=== PATIENT | male | born 1995 | race Caucasian/White ===

== ENCOUNTER 2018-05-08 18:42 | Inpatient (IN) | payer BC, OTHER, SELFPAY ==
[~2018-05-08 18:42] MED LIST: ISOVUE-370 76%-LOCM 1 ML ONE
[2018-05-08 19:50] LABS: #Eosinphils 0.1 thou/uL (0.0-0.7); #Lymphocytes 0.4 thou/uL (1.20-3.40); #Monocytes 0.5 thou/uL (0.11-0.59); #Neutrophils 10.8 thou/uL (1.40-6.50); %Eosinophils 0.9 % (0.0-10.0); %Lymphocytes 3.3 % (21.0-51.0); %Monocytes 4.6 % (0.0-10.0); %Neutrophils 91.2 % (42.0-75.0); Hemoglobin 16.1 g/dL (14.0-18.0); Mean Corpuscular HGB CONC 27.9 g/dL (32.0-36.0); Mean Corpuscular Hemoglobin 24.5 pg (27.0-31.0); Mean Corpuscular Volume 87.9 fL (78.0-98.0); Platelet Count 231 thou/uL (130-400); RBC Distribution Width 11.6 % (11.5-14.5); Red Blood Cell (RBC) Count 6.57 mill/uL (4.70-6.10); White Blood Cell (WBC) Count 11.9 thou/uL (4.8-10.8)
[2018-05-08 19:55] LABS: ALT (SGPT) 17 U/L (8-55); AST (SGOT) 18 U/L (5-34); Albumin 5.5 g/dL (3.5-5.0); Alkaline Phosphatase 68 U/L (40-150); Anion Gap 15 mmol/L (10-20); BUN (Urea Nitrogen) 16 mg/dL (8.9-20.6); Bilirubin, Total 1.8 mg/dL (0.2-1.2); Calc. Creatinine Clearance 0 mL/min (70-130); Calcium 10.8 mg/dL (7.8-10.44); Carbon Dioxide 26 mmol/L (22-29); Chloride 106 mmol/L (98-107); Estimated GFR-MDRD 70; Globulin 3.4 g/dL (2.4-3.5); Glucose 110 mg/dL (70-105); Lipase 8 U/L (8-78); Potassium 4.3 mmol/L (3.5-5.1); Protein, Total 8.9 g/dL (6.0-8.3); Sodium 143 mmol/L (136-145)
[2018-05-08] MEDS ORDERED: Morphine 4 MG/ML VIAL ONE (20:09)
[2018-05-08] MEDS ORDERED: Ondansetron PF 4 MG/2 ML Vial ONE (20:10)
--- NOTE | 2018-05-08 20:34 | CT ---
CT ABDOMEN AND PELVIS WITH IV CONTRAST: 05/08/18 HISTORY: Abdominal pain. Diarrhea and vomiting. FINDINGS: The lung bases are clear. The liver, spleen, kidneys, adrenal glands, and pancreas have a normal CT a ppearance. There is fluid throughout the small and large bowel without abnormal dilatation. No inflam mation is apparent. No enlarged lymph nodes or free fluid. IMPRESSION: No significant abnormalities are demonstrated. POS: [facility]
--- NOTE | 2018-05-08 21:59 | ULT ---
SONOGRAM RIGHT UPPER QUADRANT: 05/08/18 HISTORY: Right upper quadrant pain. FINDINGS: The gallbladder has a normal appearance. Common duct is 0.4 cm. Liver unremarkable without focal mass or intrahepatic biliary dilatation. No free fluid. IMPRESSION: Normal right upper quadrant sonogram. POS: [facility]
[2018-05-08 22:41] LABS: Acetaminophen Less than 6.0 mcg/mL (10.0-30.0); Alcohol Less than 10 mg/dL (Less than 10); Salicylate Less than 8.0 mg/dL (15.0-30.0)
[2018-05-08] MEDS ORDERED: Promethazine HCl 25 MG/ML VIAL ONE (22:45)
[2018-05-08 22:55] LABS: Bilirubin Negative (Negative); Blood, Urine Negative (Negative); Clarity CLEAR (Clear); Glucose, Urine (Dipstick) Negative (Negative); Leukocyte Negative (Negative); Nitrite Negative (Negative); Protein, Urine (Dipstick) Negative (Neg-Trace); Urobilinogen 0.2 mg/dL (0.2-1.0)
[2018-05-08 22:56] LABS: Specific Gravity, Urine 1.059 (1.002-1.036)
[2018-05-08] MEDS ORDERED: metroNIDAZOLE 500 MG/100 ML BAG ONE (22:59)
[2018-05-08] MEDS ORDERED: metroNIDAZOLE 500 MG in Premix Bag 1 BAG IVPB ONE (23:00)
[2018-05-08 23:03] LABS: Amphetamine Not Detected (NotDetected); Barbiturates Screen Not Detected (NotDetected); Benzodiazepine Screen Not Detected (NotDetected); Cocaine Metabolite Screen Not Detected (NotDetected); Medtox Control Line Valid? VALID (VALID); Medtox Reader # READER 4; Methadone Not Detected (NotDetected); Methamphetamine Not Detected (NotDetected); Opiate Screen Detected (NotDetected); Oxycodone Screen Not Detected (NotDetected); Phencyclidine (PCP) Not Detected (NotDetected); THC/Cannabinoid Screen Not Detected (NotDetected); Tricyclic Screen Not Detected (NotDetected)
[2018-05-09] VITALS: BMI 27.1
[2018-05-09] MEDS ORDERED: Ondansetron PF 4 MG/2 ML Vial IVP PRN (00:04)
[2018-05-09] MEDS ORDERED: Ondansetron ODT 4 MG TAB SL PRN (00:04)
[2018-05-09] MEDS ORDERED: hydrALAZINE 20 MG/ML VIAL SLOW IVP PRN (00:11)
[2018-05-09] MEDS: Sodium Chloride 0.9% 1,000 ML IV SCH ×5 (00:23→19:50)
[2018-05-09 00:44] LABS: HIV (1/2) Antibody/Antigen Non-Reactive (NonReactive); HIV 1/2 INDEX 0.11 S/CO (<1.00)
[2018-05-09] MEDS ORDERED: Acetaminophen 325 MG TAB PO PRN (04:37)
[2018-05-09] MEDS: metroNIDAZOLE 500 MG in Premix Bag 1 BAG IVPB SCH ×2 (04:55→14:10)
[2018-05-09 06:51] LABS: #Lymphocytes 0.8 thou/uL (1.20-3.40); #Monocytes 0.4 thou/uL (0.11-0.59); %Basophils 0.4 % (0.0-1.0); %Eosinophils 0.4 % (0.0-10.0); %Lymphocytes 11.1 % (21.0-51.0); %Monocytes 5.3 % (0.0-10.0); %Neutrophils 82.8 % (42.0-75.0); Hemoglobin 13.9 g/dL (14.0-18.0); Mean Corpuscular HGB CONC 33.6 g/dL (32.0-36.0); Mean Corpuscular Hemoglobin 29.7 pg (27.0-31.0); Mean Corpuscular Volume 88.3 fL (78.0-98.0); Mean Platelet Volume 7.2 fL (7.4-10.4); Platelet Count 163 thou/uL (130-400); RBC Distribution Width 11.5 % (11.5-14.5); Red Blood Cell (RBC) Count 4.68 mill/uL (4.70-6.10); White Blood Cell (WBC) Count 7.2 thou/uL (4.8-10.8)
[2018-05-09 07:24] LABS: Anion Gap 11 mmol/L (10-20); BUN (Urea Nitrogen) 16 mg/dL (8.9-20.6); Calc. Creatinine Clearance 135 mL/min (70-130); Calcium 8.5 mg/dL (7.8-10.44); Carbon Dioxide 23 mmol/L (22-29); Chloride 109 mmol/L (98-107); Estimated GFR-MDRD Greater than 90; Glucose 103 mg/dL (70-105); Potassium 3.9 mmol/L (3.5-5.1); Sodium 139 mmol/L (136-145)
[2018-05-09] MEDS ORDERED: Ciprofloxacin Lactate/D5W 200 MG in Premix Bag 1 BAG IVPB SCH (09:00)
--- NOTE | 2018-05-09 10:09 | HP ---
PRIMARY CARE PHYSICIAN: Out of town. CHIEF COMPLAINT: Nausea, vomiting, diarrhea onset yesterday. The patient also reports some fever prehospital. HISTORY OF PRESENT ILLNESS: Mr. Eduardo is a 22-year-old male, who returns to this facility in the PACU, reports nausea, vomiting, diarrhea, blood streaking, but reports some fever, on day of admission reports 9 episodes of diarrhea prior to presentation to the ER. He also reports abdominal pain. Denies history of Crohn's or ulcerative colitis. Reports ingestion of possible raw meat. Stool samples positive for Cryptosporidium and Campylobacter. The patient was started on fluoroquinolones and Alinia for the Cryptosporidium. Today on admission, the patient reports that he feels better while he has been admitted to the hospital. He denies any nausea, vomiting, or diarrhea. He reports that he is thirsty, but does not have an appetite. In the ER, he was given 2 L of fluid, Phenergan, Zofran, Cipro, and Flagyl and was admitted to the hospital for further management. Denies any sick contacts. Denies any recent travel. PAST MEDICAL HISTORY: None. PAST SURGICAL HISTORY: Has dental implants. FAMILY HISTORY: Grandparents, positive for lymphoma. No other history is given. PSYCHIATRIC HISTORY: None. SOCIAL HISTORY: The patient drinks socially once a month. The patient denies drug use. No smoking. Lives at home. ALLERGIES: PENICILLIN. MEDICATIONS: None. REVIEW OF SYSTEMS: The patient reports of some fever, some chills. Does report abdominal pain, nausea, vomiting, diarrhea with some blood streaks in the diarrhea, reports onset yesterday. He is not quite sure what he may have eaten that would have been different. Denies any sick contacts. Denies any dysuria. All other systems were reviewed and are negative unless mentioned in the HPI. PHYSICAL EXAMINATION: VITAL SIGNS: Temperature 99.6, pulse is 82, respirations 16, pulse ox is 95% on room air, and blood pressure is 105/78. CONSTITUTIONAL: The patient appears pain free, appears nontoxic, is alert and oriented to person, place, and time. HEENT: Head is atraumatic, normocephalic. Eyes; eyelids are normal to inspection. Pupils are equal, round, and reactive to light. Extraocular muscles are intact. ENT; pharynx exam is normal. Mouth exam is normal. Mucous membranes are moist. NECK: Normal range of motion. Trachea is midline. RESPIRATORY/CHEST: No findings of respiratory distress. Breath sounds are clear. CARDIOVASCULAR: Heart rate is regular rate and rhythm. Heart sounds are normal. ABDOMEN: Nontender. Bowel sounds are hyperactive. No distention. No peritoneal signs. No rigidity. No guarding. BACK: Normal inspection. Normal range of motion. No tenderness. EXTREMITIES: Upper extremity; normal range of motion. Motor strength is normal. Sensation intact. Radial pulses are normal. Lower extremity; normal range of motion. Motor strength is normal. Sensation is intact. Pedal pulse are equal bilaterally. No edema noted to lower extremities. NEURO: The patient is alert and oriented to person, place, and time. Speech is normal. No focal motor or sensory deficits are noted. SKIN: Normal, dry, color. PSYCH: Normal affect. LABORATORY DATA: Pertinent labs; white blood cell count initially 11.9, this morning 7.2; hemoglobin 16.1, now 13.9; hematocrit 53.2, now 41.3; and platelet count 163. Sodium 139, potassium 3.9, chloride 109, carbon dioxide 23, gap is 11, BUN is 16, creatinine is 1.01, GFR is estimated at greater than 90, glucose is 103, and calcium 8.5. Urine negative except for specific gravity 1.059 and ketones are present. Toxicology appears otherwise negative. Serology, HIV 1 and 2 antigen and AB are nonreactive. Stool micro, positive for Cryptosporidium antigen. Negative for C difficile. Positive for Campylobacter. Positive for occult blood. Blood cultures, no growth to date after 24 hours. ASSESSMENT AND PLAN: 1. Acute enteritis with stool, which was positive for Cryptosporidium and Campylobacter. The patient is currently on Flagyl and Cipro and also Alinia has been started. Health Department will be contacted. The patient is on contact isolation. We will continue IV fluids. We will ask Dr. Wallace to consult. The patient is not immunocompromised at this point. 2. Dehydration, improving. We will continue IV fluids. The patient can start with p.o. fluids today and to ensure it is tolerated. We will trend labs, vital signs. Deep vein thrombosis prophylaxis will be started. Job ID: [id number]
--- NOTE | 2018-05-09 13:48 | PDOC.EVN ---
Event Note - Event Note Event Note: Chart reviewed. Pt seen with Cheryl O'ace. Pt says he feels well, still has diarrhea. VSS S1, S2, reg Lungs CTA A/P Cryptosporidium diarrhea, improving. Await ID consult. Discussed plan of care with Cheryl.
--- NOTE | 2018-05-09 19:29 | CON ---
DATE OF CONSULTATION: 05/09/2018 REASON FOR CONSULTATION: Diarrhea with abnormal stool findings. 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 The last bowel movement was earlier this morning and with still loose stool and still with some blood in it. He ate breakfast and has not vomited since yesterday. It is not clear what kind of exposure he had. He did eat a local fast food place recently. No other members of family or roommates have developed similar symptoms. He has been given quinolone and Alinia and he feels better. No headaches, visual symptoms, sore throat, odynophagia, or dysphagia. No cough, sputum production, or chest pain. No more abdominal pain. No genitourinary symptoms. No back pain. No joint symptoms. PAST MEDICAL HISTORY: None. PAST SURGICAL HISTORY: Noncontributory. FAMILY HISTORY: Noncontributory. SOCIAL HISTORY: Drinks occasionally. No drug use. Never smoker. He is going to nursing school. He had a sexual girl friend. ALLERGIES: PENICILLIN WITH RASH. MEDICATIONS: Current med list includes: 1. Cipro. 2. Metronidazole. 3. Alinia. PHYSICAL EXAMINATION: VITAL SIGNS: T-max at 100.4, now is 98.5, blood pressure wnl, pulse 89, respirations 16, and O2 saturation 96%. GENERAL: Appears quite healthy. SKIN: No skin lesions. No lymphadenopathy. HEENT: Normal. NECK: Supple. LUNGS: Symmetric clear breath sounds. No back tenderness. HEART: S1 and S2, regular rate. No S3 or S4. ABDOMEN: Soft. Not distended or tender. No ascites. : No bladder distention. MUSCULOSKELETAL: No joint inflammatory activity. EXTREMITIES: Moves all extremities equally. NEUROLOGIC: Cognitive function appears to be intact. LABORATORY DATA: White cell count is down from 11.9 to 7.2, hemoglobin 16 and now 13.9, platelets 163 with 82% neutrophils. Chemistry with bilirubin 1.8. Liver profile normal. Direct bilirubin 0.6 and albumin 5.5. Urinalysis with fairly unremarkable findings. Toxicology was not remarkable. Serology with negative HIV. Microbiology, we have negative C. diff and the rapid parasite screen positive for Cryptosporidium, negative for Giardia and stool culture, rare normal enteric jenifer identified. The patient had a positive Campylobacter antigen test, negative Shiga toxin test. Abdomen and pelvis CT from the 25th with clear lung bases, otherwise no abnormal findings. Abdomen ultrasound with normal right upper quadrant findings. ASSESSMENT: Otherwise healthy young male with acute gastroenteritis with blood in the stool and a positive stool exam for 2 different pathogens. DISCUSSION: Cryptosporidium is a waterborne pathogen, typically does not cause inflammatory changes in the intestinal mucosa, so therefore it is usually not associated with fever or hematochezia. Campylobacter in the other hand does cause invasive disease with colitis and can be associated with the full clinical findings described by the patient. This would be the more likely scenario in this case. Campylobacter antigen test has less than optimal performance characteristics with high frequency of false positives but the pre-test likelihood of Campylobacter sp infection is higher in this case. Non-infectious IBD less likely. I will recommend discontinuing Flagyl. I switch him to oral Alinia and oral Azithromycin. The benefit for treatment of the Campylobacter infection is modest and usually shortens duration of the gastroenteritis for just a few hours. It can be associated with more severe syndrome such as Guillain-[place], but he does not have any evidence of that. In his case, he does have fever and bloody stool, so treatment is recommended. I would just treat him for 3 days. Discontinue ciprofloxacin in addition to Flagyl. Job ID: [id number] LOUIS
[2018-05-10] MEDS: Sodium Chloride 0.9% 1,000 ML IV SCH ×2 (03:46→13:31)
--- NOTE | 2018-05-10 11:53 | PDOC.PN ---
- Subjective Encounter Start Date: 05/10/18 Encounter Start Time: 11:40 Subjective: f/u for Campylobacter/Cryptosporidium enteritis on Alinia/ Zithromax. Feels -: better overall. 2 loose stools this am. - Objective MAR Reviewed: Yes Vital Signs & Weight: Vital Signs (12 hours) Temp Pulse Resp BP BP Pulse Ox 05/10/18 08:23 96.9 F L 67 20 104/54 L 97 05/10/18 03:46 98.8 F 75 18 121/58 L 98 Weight Weight 183 lb 14.4 oz I&O: 05/09/18 05/10/18 05/11/18 06:59 06:59 06:59 Intake Total 966 4137 Balance 966 4137 Result Diagrams: 05/09/18 06:39 05/09/18 06:39 Additional Labs: Microbiology 05/08/18 22:20 Stool - Pending Stool Occult Blood (JUAN) - Final 05/08/18 22:20 Stool - Pending Rapid Parasite Screen - Final 05/08/18 22:20 Stool - Pending Campylobacter Antigen Assay - Final 05/08/18 22:20 Stool - Pending Shiga Toxin Test - Final 05/08/18 22:20 Stool - Pending C. difficile GDH Antigen & Toxins - Final 05/08/18 22:20 Stool - Pending Stool Culture - Preliminary 05/08/18 22:02 Venous blood - Right Hand Blood Culture - Preliminary Specimen has been received and culture in progress. No Growth to date. 05/08/18 22:02 Venous blood - Left Arm Blood Culture - Preliminary Specimen has been received and culture in progress. No Growth to date. Phys Exam - Physical Examination Constitutional: NAD HEENT: PERRLA, sclera anicteric, oral pharynx no lesions Neck: no nodes, no JVD, supple, full ROM Respiratory: no wheezing, no rales, no rhonchi, clear to auscultation bilateral Cardiovascular: RRR, no significant murmur, no rub, gallop Gastrointestinal: soft, non-tender, no distention, positive bowel sounds Musculoskeletal: no edema, pulses present Neurological: normal sensation, moves all 4 limbs Psychiatric: A&O x 3 Skin: normal turgor, cap refill <2 seconds Dx/Plan (1) Enteritis due to Campylobacter species Code(s): A04.5 - CAMPYLOBACTER ENTERITIS Status: Acute Comment: Continue Alinia and Zithromax, advance to regular diet (2) Nausea & vomiting Code(s): R11.2 - NAUSEA WITH VOMITING, UNSPECIFIED Status: Acute Comment: Secondary to #1, resolved (3) Neutrophilic leukocytosis Code(s): D72.9 - DISORDER OF WHITE BLOOD CELLS, UNSPECIFIED Status: Acute Comment: Secondary to #1, resolving (4) Hypercalcemia Code(s): E83.52 - HYPERCALCEMIA Status: Acute Comment: Secondary to dehydration, resolving - Plan plan discussed w/ family, continue antibiotics, out of bed/ambulate, DVT proph w /SCDs Stable overall -: Continue Alinia/Zithromax -: Saline lock IVF -: Advance to regular diet -: Likely home in am * .
[2018-05-10 13:13] VITALS: BP 114/65; TEMP 98.2
--- NOTE | 2018-05-10 16:07 | PRG ---
DATE OF SERVICE: 05/10/2018 SUBJECTIVE: Feeling better. No more diarrhea. No vomiting. Ate his breakfast well. No respiratory symptoms or abdominal pain. No genitourinary symptoms. OBJECTIVE: VITAL SIGNS: He has been afebrile. Other vital signs are normal. Awake, alert, oriented. LUNGS: Clear. HEART: S1, S2. Regular rate. ABDOMEN: Soft, not distended or tender. ASSESSMENT AND DISCUSSION: Gastroenteritis, probably due to Campylobacter. One more day of azithromycin and then DC all antimicrobials. The patient should be able to go home today. Job ID: [id number]
[2018-05-10] MEDS ORDERED: Azithromycin 250 MG TAB PO SCH (18:00)
--- NOTE | 2018-05-11 02:03 | DIS ---
DATE OF ADMISSION: 05/08/2018 DATE OF DISCHARGE: 05/10/2018 DISCHARGE DIAGNOSES: 1. Campylobacter enteritis, improved. 2. Nausea and vomiting secondary to Campylobacter enteritis, improved. 3. Neutrophilic leukocytosis, improved. 4. Hypercalcemia secondary to dehydration, resolved. CONSULTATIONS: Dr. Emerson Wallace with Infectious Disease Service. PERTINENT LAB AND X-RAY FINDINGS: 1. Calcium ranged between 8.5 to 10.8. CBC showed a white blood cell count ranged between 7.2 to 11.9. 2. HIV 1 and 2 antigen antibody nonreactive, 05/08/2018. 3. Blood cultures x2 dated 05/08/2018 showed no growth at 48 hours. 4. Stool Hemoccult dated 05/08/2018, positive x1. 5. Stool culture dated 05/08/2018, showed rare normal enteric jenifer. No Salmonella, Shigella or E coli . 6. Campylobacter antigen positive, 05/08/2018. 7. C. difficile antigen toxin dated 05/08/2018, negative. 8. Cryptosporidium antigen positive, 05/08/2018. HOSPITAL COURSE: The patient was admitted after presenting with persistent nausea, vomiting, and diarrhea. The patient underwent extensive stool evaluation showing evidence of Campylobacter antigen positivity as well as Cryptosporidium. The patient was initially placed on ciprofloxacin and Flagyl with additional Alinia. The patient was evaluated by the Infectious Disease Service due to the findings of stool studies, at which point patient was transitioned to Alinia as well as Zithromax 500 mg daily. The patient continued to receive IV fluids and placed on a clear liquid diet with symptoms improving with antibiotic therapy. The patient's frequency of stool as well as nausea and vomiting resolved prior to discharge. I have examined the patient at the time of discharge and discussed followup instructions. The patient overall clinically stable and ready for discharge on 05/10/2018. DISCHARGE MEDICATIONS: 1. Azithromycin 500 mg p.o. daily x3 days. 2. Alinia 500 mg p.o. b.i.d. x3 days. FOLLOW UP: This patient may follow up with his primary care provider within 7 days of discharge. The patient may follow up with Dr. Emerson Wallace. CONDITION ON DISCHARGE: Stable. ACTIVITY: Ad-yakov. DIET: Regular. CODE STATUS: Full. DISPOSITION: Home 05/10/2018. Job ID: [id number]
== END 2018-05-10 16:48 | disposition home or self-care (01) | DRG 373 ==
LOC: ERS 18:42 → 2SW 23:57 → OBSVTOIN 23:57
PROVIDERS: ADMIT Internal Medicine; ATTEND Internal Medicine
DX: A04.5 Campylobacter enteritis (principal); Z88.0 Allergy status to penicillin; K52.89 Other specified noninfective gastroenteritis and colitis; E86.0 Dehydration; E83.52 Hypercalcemia; D72.9 Disorder of white blood cells, unspecified
CPT/HCPCS: 36415; 74177; 76705; 80048; 80053; 80306; 80307; 81003; 82248; 82274; 83010; 83615; 83690; 85025; 87040; 87045; 87046; 87324; 87328; 87329; 87389; 87449; 87899; J0744; J2270; J2405; J2550; Q9966

== ENCOUNTER 2022-01-03 07:31 | Outpatient (CLI) | payer BC | END 2022-01-03 07:32 | disposition home or self-care (01) | LOC: ULT 07:31 | PROVIDERS: ATTEND Family Medicine | DX: R10.11 Right upper quadrant pain (principal) | CPT/HCPCS: 76705 ==

== ENCOUNTER 2022-03-01 10:25 | Outpatient (CLI) | payer BC ==
[2022-03-01 11:36] LABS: #Eosinphils 0.4 10x3/uL (0.0-0.5); #Monocytes 0.6 10x3/uL (0.0-1.1); #Neutrophils 2.5 10x3/uL (1.5-8.4); %Basophils 0.6 % (0.0-2.0); %Eosinophils 7.2 % (0.0-6.0); %Lymphocytes 34.6 % (18.0-47.0); %Monocytes 11.9 % (0.0-10.0); %Neutrophils 45.5 % (40.0-75.0); Hemoglobin 13.6 g/dL (13.5-17.5); Mean Corpuscular HGB CONC 33.5 g/dL (32.0-36.0); Mean Corpuscular Hemoglobin 28.9 pg (27.0-33.0); Mean Corpuscular Volume 86.4 fl (81.2-95.1); Mean Platelet Volume 9.9 fl (7.4-10.4); Platelet Count 200 10x3/uL (150-450); RBC Distribution Width 12.1 % (11.5-14.5); White Blood Cell (WBC) Count 5.4 10x3/uL (3.5-10.5)
[2022-03-01 12:26] LABS: ALT (SGPT) 23 U/L (8-55); AST (SGOT) 21 U/L (5-34); Albumin 4.8 g/dL (3.5-5.0); Alkaline Phosphatase 50 U/L (40-110); Anion Gap 14 mmol/L (10-20); BUN (Urea Nitrogen) 12 mg/dL (8.9-20.6); Bilirubin, Direct 0.5 mg/dL (0.1-0.3); Bilirubin, Total 2.1 mg/dL (0.2-1.2); Calc. Creatinine Clearance 0 mL/min (70-130); Calcium 9.7 mg/dL (7.8-10.44); Carbon Dioxide 25 mmol/L (22-29); Chloride 104 mmol/L (98-107); Estimated GFR 109; Glucose 87 mg/dL (70-105); Potassium 4.7 mmol/L (3.5-5.1); Protein, Total 7.4 g/dL (6.0-8.3); Sodium 138 mmol/L (136-145)
== END 2022-03-01 10:26 | disposition home or self-care (01) ==
LOC: LABBT 10:25
PROVIDERS: ATTEND Surgery
DX: Z01.812 Encounter for preprocedural laboratory examination (principal); K80.20 Calculus of gallbladder without cholecystitis without obstruction
CPT/HCPCS: 80048; 80076; 85025

== ENCOUNTER 2022-03-05 08:28 | Day surgery (SDC) | payer BC ==
[2022-03-04 14:48] VITALS: BMI 27.0
[2022-03-05] MEDS ORDERED: Iopamidol 30 ML ONE (10:36)
[2022-03-05] MEDS ORDERED: Bupivacaine/Epinephrine 0.25% 30 ML VIAL ONE ×2 (10:36→11:44)
[2022-03-05] MEDS ORDERED: fentaNYL PF 100 MCG/2 ML SYRINGE ONE (11:24)
[2022-03-05] MEDS ORDERED: Midazolam HCl 2 mg/2 ml Vial ONE ×2 (11:24→11:36)
[2022-03-05] MEDS ORDERED: HYDROmorphone 0.5 MG/0.5 ML SYRINGE ONE (11:25)
[2022-03-05] MEDS ORDERED: cefOXitin 2 GM VIAL ONE (11:33)
[2022-03-05] MEDS ORDERED: Sodium Chloride 0.9% 100 ML ONE (11:33)
[2022-03-05] MEDS ORDERED: PROPOFOL 200 MG/20 ML VIAL ONE (11:44)
[2022-03-05] MEDS ORDERED: Glycopyrrolate 0.2 MG/ML 5 ML SYRINGE ONE (11:44)
[2022-03-05] MEDS ORDERED: Ondansetron PF 4 MG/2 ML Vial ONE ×2 (11:44→12:48)
[2022-03-05] MEDS ORDERED: Dexamethasone 20 MG/5 ML VIAL ONE (11:44)
[2022-03-05] MEDS ORDERED: Rocuronium Bromide 10 MG/ML (10ML VIAL) ONE (11:44)
[2022-03-05] MEDS ORDERED: NEOSTIGMINE 3 MG/3 ML SYR 3 MG/3 ML SYRINGE ONE (11:44)
[2022-03-05] MEDS ORDERED: SUGAMMADEX SODIUM 200 MG/2 ML VIAL ONE (12:21)
[2022-03-05] MEDS ORDERED: FENTANYL 50 MCG/ML 1 ML VIAL ONE ×2 (12:50→12:53)
[2022-03-05] MEDS ORDERED: HYDROcodone/Acetaminophen 5/325 mg Tablet ONE ×2 (14:06→14:48)
[2022-03-05] MEDS ORDERED: Ondansetron ODT 4 MG TAB ONE (15:20)
== END 2022-03-05 15:33 | disposition home or self-care (01) ==
LOC: SDC 08:28
PROVIDERS: ATTEND Surgery
DX: K80.64 Calculus of gallbladder and bile duct with chronic cholecystitis without obstruction (principal); Z88.0 Allergy status to penicillin
CPT/HCPCS: 47532; 88304; C1889; J0694; J1100; J1170; J2250; J2405; J2704; J3010; J3490; Q0162; Q9967